=== PATIENT | male | born 1995 | race Two or more races ===

== ENCOUNTER 2019-06-30 17:06 | Inpatient (IN) | payer SELFPAY ==
[~2019-06-30] VITALS: Ht 157.5 cm; Wt 55.3 kg
[2019-06-30] MEDS ORDERED: NALOXONE PREFILLED SYRINGE 2 MG/2 ML SYRINGE ONE (17:37)
[2019-06-30 17:47] LABS: BASOPHILS # (AUTO) 0.1 /CMM (0.0-0.2); BASOPHILS % (AUTO) 0.3 % (0.0-2.0); EOSINOPHILS % (AUTO) 0.1 % (0.0-6.0); HEMATOCRIT 54 % (39-51); HEMOGLOBIN 18.8 g/dL (13.5-17.5); LYMPHOCYTES # (AUTO) 1.1 /CMM (0.8-4.8); LYMPHOCYTES % (AUTO) 5.5 % (20.0-44.0); MEAN CORPUSCULAR HGB CONC 35 g/dl (31.0-36.0); MEAN CORPUSCULAR VOLUME 89 fL (80-96); MONOCYTES # (AUTO) 0.4 /CMM (0.1-1.30); MONOCYTES % (AUTO) 2.1 % (2.0-12.0); NEUTROPHILS # (AUTO) 17.9 /CMM (1.8-8.9); PLATELET COUNT (AUTO) 291 /CMM (150-450); RED BLOOD CELL COUNT(AUTO) 6.02 MIL/uL (4.5-6.0); WHITE BLOOD COUNT (AUTO) 19.5 K/uL (4.3-11.0)
--- NOTE | 2019-06-30 17:49 | NUR ---
[id number] POSS OD UNKNOWN DRUG " POWDERED " RESIDUE FOUND ON ID PER EMS GIVEN 4MG OF NARCAN & 4 MG OF ZOFRAN IVP IN FIELD.BLOODY NOSE. [id number]. PT AAOX3, HYPOXIC 02 SAT 65% RA. PLACED ON HI KEELY NON REBREATHTER. PT SEEN & EVAL'D BY DR. CHARLES. PLACED ON WEBSPHERE PORTAL DEVELOPER, ST. WILL CONT TO MONITOR.
--- NOTE | 2019-06-30 17:49 | NUR ---
MEDICATED WITH 2MG OF NARCAN IVP. PT MONSERRAT WELL.
[2019-06-30] MEDS ORDERED: NALOXONE PREFILLED SYRINGE 2 MG/2 ML SYRINGE IV ONE (18:00)
[2019-06-30 18:04] LABS: ALANINE AMINOTRANSFERASE 40 U/L (12-78); ALBUMIN 3.6 g/dL (3.4-5.0); ALKALINE PHOSPHATASE 104 U/L (46-116); ASPARTATE AMINOTRANSFERASE 44 U/L (15-37); BILIRUBIN,DIRECT 0.1 mg/dL (0.0-0.2); BILIRUBIN,TOTAL 0.3 mg/dL (0.2-1.0); CALCIUM, SERUM 8.7 mg/dL (8.5-10.1); CARBON DIOXIDE 28 mmol/L (21-32); CHLORIDE 103 mmol/L (98-107); CREATININE 1.5 mg/dL (0.6-1.3); GLUCOSE 242 mg/dL (74-106); POTASSIUM 3.6 mmol/L (3.5-5.1); SODIUM SERUM 141 mmol/L (136-145); UREA NITROGEN, BLOOD 14 mg/dL (7-18)
[2019-06-30 18:06] LABS: ACETAMINOPHEN < 2 ug/ml (10-30); ALCOHOL, BLOOD < 3 mg/dL (0-0); SALICYLATE 1.8 mg/dL (2.8-20.0)
[2019-06-30] MEDS ORDERED: IV NS 0.9% 1,000 ML BAG IV ONE ×2 (18:30→19:00)
--- NOTE | 2019-06-30 18:35 | NUR ---
RT @ BS FOR ANYA.
[2019-06-30 18:41] LABS: ABG BASE EXCESS -5.7 mmol/L; ABG OXYGEN SATURATION 84.1 % (92.0-98.5); ABG PH 7.286 (7.350-7.450); AaDO2 472.2 mmHg; COHb 0.6 % (0.5-1.5); MetHb 0.4 % (0.0-1.5); O2Hb 83.3 % (94.0-97.0); SITE, ABG Right Brachial; VENT MODE, BG NON REBREATHER
--- NOTE | 2019-06-30 18:53 | NUR ---
RT Pt placed on BiPAP and immediately became agitated and removed mask. Pt would not place BiPAP back on despite being educated on the benefits. Dr. Valladares and RN notified and aware. Pt placed back on non-rebreather.
[2019-06-30 18:57] LABS: BAND % (MANUAL) 2 % (0.0-5.0); LYMPHOCYTES % (MANUAL) 5 % (16-48); MONOCYTES % (MANUAL) 1 % (0-11.0); NEUTROPHILS % (MANUAL) 91 (42-76); REACTIVE LYMPHOCYTES 1 % (0-0)
[2019-06-30] MEDS ORDERED: PIPERACILLIN /TAZOBACTAM 3.375 G in IV D5W 50 ML IV ONE (19:00)
[2019-06-30 19:09] LABS: APPEARANCE,URINE Clear (CLEAR); BILIRUBIN,URINE SMALL (NEGATIVE); BLOOD, URINE Trace-intact Ery/uL (NEGATIVE); COLOR,URINE Yellow (YELLOW); KETONES,URINE Trace (NEGATIVE); LEUKOCYTE ESTERASE ,URINE Negative (NEGATIVE); NITRITE, URINE Negative (NEGATIVE); PROTEIN,URINE 100 mg/dl (NEGATIVE); UGLUCOSE 250 MG/DL mg/dL (NEGATIVE); UROBILINOGEN,URINE 0.2 EU/dL (0.2)
--- NOTE | 2019-06-30 19:16 | NUR ---
PT REFUSED BIPAP, DR. CHARLES AWARE. O2 SAT 92% HI KEELY NON REBREATHER. PT ASLEEP, EASILY AWAKEN BY VERBAL STIMULI. DENIES CP, SOB, DIZZINESS, N/V, WEAKNESS @ THIS TIME. WILL CONT TO MONITOR.
[2019-06-30 19:18] LABS: BACTERIA,URINE Rare /HPF (None Seen); SQUAMOUS EPITHELIAL CELL,UR Few /HPF (None Seen); WBC,URINE 0-2 /HPF (0-3)
--- NOTE | 2019-06-30 19:49 | NUR ---
BED ASSIGNMENT [id number]
[2019-06-30] MEDS ORDERED: NALOXONE HCL 0.4 MG/ML AMPUL IV PRN (20:00)
[2019-06-30] MEDS ORDERED: MAG HYDROX/AL HYDROX/SIMETH 30 ML UDC PO PRN (20:00)
[2019-06-30] MEDS ORDERED: ONDANSETRON HCL/PF 4 MG/2 ML VIAL IVP PRN (20:00)
[2019-06-30] MEDS ORDERED: MAGNESIUM HYDROXIDE 30 ML UDC PO PRN (20:00)
[2019-06-30] MEDS ORDERED: ALBUTEROL FS 2.5 MG/3 ML VIAL.NEB NEB PRN (20:30)
--- NOTE | 2019-06-30 20:34 | NUR ---
REPORT GIVEN TO GINI ABDULLAHI FOR [facility].
--- NOTE | 2019-06-30 21:00 | NUR ---
RECEIVED PATIENT IN NO ACUTE DISTRESS IN BED. PATIENT IS ALERT AND ORIENTED TIMES 4 AND ABLE TO MAKE NEEDS KNOWN. PATIENT IS ON O2 VIA NON REBREATHER AT 15LPM AND TOLERATING WELL WITH O2 SAT AT 92%. PATIENT IS ON TELEMETRY SHOWING ST ON THE MONITOR. PATIENT HAS LEFT AC 18G THAT IS CLEAN DRY INTACT AND PATENT WITH SALINE FLUSH. BED IN LOW LOCK POSITION WITH RAILS UP TIMES 2. CALL LIGHT WITHIN REACH AND ALL SAFETY MEASURES ENSURED AND CARRIED OUT. WILL CONTINUE TO MONITOR PATIENT.
[2019-06-30 21:07] VITALS: BP 102/63
--- NOTE | 2019-06-30 21:20 | NUR ---
NOTIFIED DIMITIRY DNP AIRCRAFT ACCESSORIES MECHANIC AFTER SWALLOW EVAL WITH PATIENT ABLE TO DRINK WATER WITHOUT COUGHING OR DISCOMFORT. NOTIFIED BY DIMITIRY DNP THAT PATIENT IS ABLE TO SWALLOW WITHOUT DIFFICULTY THAT IT IS OK TO INCREASE DIET TOLERATED. READBACK ORDERS PERFORMED AND CARRIED OUT. WILL CONTINUE TO MONITOR PATIENT
[2019-06-30 21:30] VITALS: BP 95/70
[2019-06-30] MEDS: IV NS 0.9% 1,000 ML IV PRN (21:47)
[2019-06-30 22:00] VITALS: BP 105/66
[2019-06-30 23:01] VITALS: BP 102/79
[2019-06-30 23:30] VITALS: BP 98/63
[2019-07-01] VITALS (17 sets, daily range): BP systolic 88–131; BP diastolic 49–78
[2019-07-01] MEDS ORDERED: PIPERACILLIN /TAZOBACTAM 3.375 G in IV D5W 50 ML IV SCH ×2
[2019-07-01] MEDS: PIPERACILLIN /TAZOBACTAM 3.375 G in IV D5W 100 ML IV SCH ×3 (00:48→16:48)
[2019-07-01 04:08] LABS: BASOPHILS % (AUTO) 0.3 % (0.0-2.0); EOSINOPHILS % (AUTO) 0.1 % (0.0-6.0); HEMATOCRIT 47 % (39-51); HEMOGLOBIN 16.5 g/dL (13.5-17.5); LYMPHOCYTES # (AUTO) 0.9 /CMM (0.8-4.8); LYMPHOCYTES % (AUTO) 9.6 % (20.0-44.0); MEAN CORPUSCULAR HGB CONC 35 g/dl (31.0-36.0); MEAN CORPUSCULAR VOLUME 89 fL (80-96); MONOCYTES # (AUTO) 0.5 /CMM (0.1-1.30); MONOCYTES % (AUTO) 5.3 % (2.0-12.0); NEUTROPHILS # (AUTO) 7.6 /CMM (1.8-8.9); NEUTROPHILS % (AUTO) 84.7 % (43.0-81.0); PLATELET COUNT (AUTO) 208 /CMM (150-450); RED BLOOD CELL COUNT(AUTO) 5.26 MIL/uL (4.5-6.0); WHITE BLOOD COUNT (AUTO) 8.9 K/uL (4.3-11.0)
[2019-07-01 04:38] LABS: BILIRUBIN,TOTAL 0.6 mg/dL (0.2-1.0); CALCIUM, SERUM 8.3 mg/dL (8.5-10.1); CREATININE 1.2 mg/dL (0.6-1.3); MAGNESIUM 1.6 mg/dL (1.8-2.4); PHOSPHORUS 3.3 mg/dL (2.5-4.9); POTASSIUM 4.2 mmol/L (3.5-5.1); TOTAL PROTEIN, SERUM 5.7 g/dL (6.4-8.2)
[2019-07-01 04:41] LABS: THYROID STIMULATING HORMONE 0.438 uIU/mL (0.358-3.74)
--- NOTE | 2019-07-01 07:16 | NUR ---
PATIENT REMAINS IN NO ACUTE DISTRESS IN BED. PATIENT DID NOT HAVE ANY SIGNIFICANT CHANGE IN CONDITION DURING SHIFT. ALL NEEDS MET, ALL ORDERS CARRIED OUT. WILL ENDORSE CARE TO AM RN FOR CONTINUITY OF CARE.
[2019-07-01] MEDS: PANTOPRAZOLE 40 MG TABLET.DR PO SCH (07:51)
--- NOTE | 2019-07-01 07:58 | NUR ---
RN NOTES RECEIVED PATIENT FROM RN. PATIENT AWAKE, ALERT, RESPONDS TO VOICE, DENIES PAIN. SAFETY MAINTAINED, REORIENTED HIM TO SET UP.COACHED TO RELAX AND DEEP BREATH.CONTINUE MONITOR. CALL LIGHT WITHIN REACH.
--- NOTE | 2019-07-01 10:06 | NUR ---
RN NOTES 1000-PATIENT SEEN BY DR JONES, PATIENT DENIES PAINMD DISCUSSED PLANS OF CARE WITH HIM HE VERBALIZED UNDERSTANDING.
[2019-07-01] MEDS: Magnesium 1GM/D5W 100ML PREMIX 100 ML IV SCH ×2 (11:08→11:58)
--- NOTE | 2019-07-01 14:37 | NUR ---
PT DENIES ANY PAIN HAS A LITTLE BIT OF SOB WHICH IS TO BE EXPECTED WITH PNEUMONIA. PT HAS 2L O2 VIA NC ON. WILL CONTINUE TO MONITOR. HR 106.
--- NOTE | 2019-07-01 15:38 | NUR ---
PT REQUESTED TO HAVE IV REMOVED THAT WAS AN LEFT AC DUE TO THE PAIN IT WAS CAUSING HIM.
--- NOTE | 2019-07-01 19:05 | NUR ---
RN CLOSING NOTES PT IS IN BED RESTING WITH FAMILY AT BEDSIDE PT HAS A MIDLINE 18 GAUGE IN [place]. PT DENIES ANY PAIN. DOES SAY HE FEELS SOB. BREATHING TX GIVEN AT 1530, PT ON 4 L O2 VIA NC. PT IS A&OX4. PT IS ABLE TO AMBULATE TO RESTROOM. WILL ENDORSE CONTINUATION OF CARE TO ART DIRECTOR RN
--- NOTE | 2019-07-01 19:38 | NUR ---
AUTOMOBILE PARTS ASSEMBLER NOTE: RECEIVED PT ON BED ALERT AND ORIENTED X3. ABLE TO MAKE NEEDS KNOWN. FAMILY AT BEDSIDE. NO ACUTE DISTRESS NOTED. DENIES PAIN AND DISCOMFORT AT THIS TIME. ON 2LPM NASAL CANNULA, BREATHING EVEN AND UNLABORED WITH NORMAL RESPIRATIONS. ON TELE MONITOR SINUS RHYTHM HR 95BPM. RIGHT UPPER ARM MIDLINE INTACT AND PATENT, IVF INFUSING WELL. KEPT CLEAN, DRY AND COMFORTABLE. CALL LIGHT PLACED WITHIN REACH. SAFETY AND FALL PRECAUTIONS OBSERVED AND MAINTAINED. WILL CONTINUE TO MONITOR PT.
[2019-07-01] MEDS: ACETAMINOPHEN 325 MG TABLET PO PRN (20:32)
--- NOTE | 2019-07-01 22:30 | NUR ---
TECHNOLOGY MANAGER NOTE: PT NOTED TO HAVE WITHDRAWAL SYMPTOMS. STONE RIGGER PRESIDENT [employer] JASON NOTIFIED AND HE ORDERED ATIVAN 1MG IVP Q4H PRN AND 500ML NS BOLUS. ORDER CARRIED OUT AND DONE. WILL CONTINUE TO MONITOR PT.
[2019-07-01] MEDS: LORAZEPAM INJ 2 MG/ML VIAL IV PRN (22:33)
[2019-07-01] MEDS ORDERED: IV NS 0.9% 500 ML IV ONE (23:00)
[2019-07-02] VITALS: BP 113/76
[2019-07-02] MEDS: PIPERACILLIN /TAZOBACTAM 3.375 G in IV D5W 100 ML IV SCH ×4 (00:13→23:14)
[2019-07-02] MEDS: IV NS 0.9% 1,000 ML IV PRN ×3 (02:16→16:48)
[2019-07-02 04:00] VITALS: BP 105/71
[2019-07-02 06:27] LABS: BASOPHILS % (AUTO) 0.3 % (0.0-2.0); EOSINOPHILS % (AUTO) 0.8 % (0.0-6.0); HEMATOCRIT 42 % (39-51); HEMOGLOBIN 14.6 g/dL (13.5-17.5); LYMPHOCYTES # (AUTO) 1.6 /CMM (0.8-4.8); LYMPHOCYTES % (AUTO) 10.7 % (20.0-44.0); MEAN CORPUSCULAR HGB CONC 35 g/dl (31.0-36.0); MEAN CORPUSCULAR VOLUME 88 fL (80-96); MONOCYTES # (AUTO) 0.6 /CMM (0.1-1.30); MONOCYTES % (AUTO) 4.5 % (2.0-12.0); NEUTROPHILS # (AUTO) 12.2 /CMM (1.8-8.9); NEUTROPHILS % (AUTO) 83.7 % (43.0-81.0); PLATELET COUNT (AUTO) 190 /CMM (150-450); RED BLOOD CELL COUNT(AUTO) 4.74 MIL/uL (4.5-6.0); WHITE BLOOD COUNT (AUTO) 14.5 K/uL (4.3-11.0)
--- NOTE | 2019-07-02 06:47 | NUR ---
SUPERVISORY HISTORIAN NOTE: NO CHANGES NOTED THROUGHOUT THE SHIFT. NO APPARENT DISTRESS NOTED. NO COMPLAINTS OF PAIN OR DISCOMFORT AT THIS TIME. VITAL SIGNS STABLE. ON 4LPM NASAL CANNULA, SATURATING WELL. NO SOB NOTED. SINUS RHYTHM ON TELE MONITOR HR 87BPM. RIGHT UPPER ARM MIDLINE INTACT AND PATENT WITH IVF NS RUNNING AT 75ML/HR. KEPT CLEAN, DRY AND COMFORTABLE. CALL LIGHT PLACED WITHIN REACH. ENCOURAGED TO VERBALIZE NEEDS AND CONCERNS AND TO CALL FOR ASSISTANCE IF NEEDED. WILL ENDORSE TO DAY SHIFT RN FOR CONTINUITY OF CARE.
[2019-07-02 06:53] LABS: CREATININE 0.9 mg/dL (0.6-1.3); MAGNESIUM 1.9 mg/dL (1.8-2.4); POTASSIUM 3.5 mmol/L (3.5-5.1)
[2019-07-02 08:00] VITALS: BP_SYST 130; BP_SYST 133; BP_DIAS 68; BP_DIAS 72
[2019-07-02] MEDS: PANTOPRAZOLE 40 MG TABLET.DR PO SCH (08:10)
[2019-07-02] MEDS: LORAZEPAM INJ 2 MG/ML VIAL IV PRN ×3 (15:05→23:08)
[2019-07-02 16:00] VITALS: BP 123/78
[2019-07-02] MEDS: POTASSIUM CHLORIDE 20 MEQ TAB.PRT.SR PO SCH ×3 (16:47→18:49)
--- NOTE | 2019-07-02 19:30 | NUR ---
PREPRESS MANAGER NOTE: RECEIVED PT ON BED ASLEEP BUT AROUSES EASILY TO VERBAL AND TACTILE STIMULI. FAMILY AT BEDSIDE. NO ACUTE DISTRESS NOTED. DENIES PAIN AND DISCOMFORT AT THIS TIME. ON ROOM AIR, BREATHING EVEN AND UNLABORED WITH NORMAL RESPIRATIONS. ON TELE MONITOR SINUS RHYTHM HR 97BPM. RIGHT UPPER ARM MIDLINE INTACT AND PATENT, IVF INFUSING WELL. KEPT CLEAN, DRY AND COMFORTABLE. CALL LIGHT PLACED WITHIN REACH. SAFETY AND FALL PRECAUTIONS OBSERVED AND MAINTAINED. WILL CONTINUE TO MONITOR PT.
[2019-07-02 20:00] VITALS: BP 118/76
[2019-07-02] MEDS ORDERED: QUET100T PO (23:05)
--- NOTE | 2019-07-03 00:02 | NUR ---
DIRECTOR OUTCOMES NOTE: PATIENT REFUSED 12AM VITAL SIGNS. MOM AT BEDSIDE. CHARGE NURSE AWARE. WILL CONTINUE TO MONITOR PT.
[2019-07-03] MEDS: IV NS 0.9% 1,000 ML IV PRN (02:01)
[2019-07-03] MEDS: LORAZEPAM INJ 2 MG/ML VIAL IV PRN ×2 (03:11→06:55)
[2019-07-03 04:00] VITALS: BP 107/73
--- NOTE | 2019-07-03 06:37 | NUR ---
HIGH SCHOOL MUSIC INSTRUCTOR NOTE: NO CHANGES NOTED THROUGHOUT THE SHIFT. MOM AT BEDSIDE. NO APPARENT DISTRESS NOTED. NO COMPLAINTS OF PAIN OR DISCOMFORT AT THIS TIME. ON ROOM AIR, SATURATING WELL. NO SOB NOTED. SINUS TACHY ON TELE MONITOR HR 110BPM. RIGHT UPPER ARM MIDLINE INTACT AND PATENT WITH IVF NS RUNNING AT 125ML/HR. KEPT CLEAN, DRY AND COMFORTABLE. CALL LIGHT PLACED WITHIN REACH. ENCOURAGED TO VERBALIZE NEEDS AND CONCERNS AND TO CALL FOR ASSISTANCE IF NEEDED. WILL ENDORSE TO DAY SHIFT RN FOR CONTINUITY OF CARE.
[2019-07-03 06:58] LABS: BASOPHILS % (AUTO) 0.3 % (0.0-2.0); EOSINOPHILS % (AUTO) 1.2 % (0.0-6.0); HEMATOCRIT 42 % (39-51); HEMOGLOBIN 14.6 g/dL (13.5-17.5); LYMPHOCYTES # (AUTO) 1.9 /CMM (0.8-4.8); LYMPHOCYTES % (AUTO) 15.8 % (20.0-44.0); MEAN CORPUSCULAR HGB CONC 35 g/dl (31.0-36.0); MEAN CORPUSCULAR VOLUME 88 fL (80-96); MONOCYTES # (AUTO) 0.7 /CMM (0.1-1.30); MONOCYTES % (AUTO) 5.3 % (2.0-12.0); NEUTROPHILS # (AUTO) 9.4 /CMM (1.8-8.9); NEUTROPHILS % (AUTO) 77.4 % (43.0-81.0); PLATELET COUNT (AUTO) 207 /CMM (150-450); RED BLOOD CELL COUNT(AUTO) 4.73 MIL/uL (4.5-6.0); WHITE BLOOD COUNT (AUTO) 12.2 K/uL (4.3-11.0)
[2019-07-03 07:17] LABS: CALCIUM, SERUM 8.6 mg/dL (8.5-10.1); CREATININE 0.8 mg/dL (0.6-1.3)
--- NOTE | 2019-07-03 07:30 | NUR ---
RN NOTES RECEIVED PATIENT IN BED, ASLEEP BUT EASILY AWAKEN TO VERBAL STIMULI, NOT ON ANY FORM OF DISTRESS, NO INDICATION OF PAIN NOTED. ON ROOM AIR. SATING FINE. SINUS RHYTHM ON THE MONITOR WITH HR ON THE 90'S. IV ACCESS ON THE [place]IAM: MIDLINE, IN PLACE AND INTACT. NO SIGN OF INFECTION NOTED. DRESSING CDI. WITH ONGOING IVF OF NS AT 125CC/HR. MOTHER AT BEDSIDE. SAFETY MEASURES OBSERVED AND MAINTAINED. BED LOW AND LOCKED POSITION. CALL LIGHT PLACED WITHIN REACH. WILL CONTINUE TO MONITOR PATIENT AND ANTICIPATE NEEDS
[2019-07-03 08:00] VITALS: BP 103/65
[2019-07-03] MEDS: PIPERACILLIN /TAZOBACTAM 3.375 G in IV D5W 100 ML IV SCH ×2 (09:17→16:00)
[2019-07-03] MEDS: PANTOPRAZOLE 40 MG TABLET.DR PO SCH (09:17)
[2019-07-03] MEDS: ACETAMINOPHEN 325 MG TABLET PO PRN (09:57)
--- NOTE | 2019-07-03 10:00 | NUR ---
RN NOTES PATIENT COMPLAINED OF CHEST PAIN, SCALE OF 9/10 ON THE LEFT SIDE OF THE CHHEST. PER PATIENT HE IS HAVING SHORTNESS OF BREATHE DUE TO THE PAIN. PATIENT'S BREATHING APPEARED UNLABORED. SATING AT 95%. BLOOD PRESSURE AT 105/71MMHG HR AT 99. OFFERED PAIN MEDICINE PRN: TYLENOL AT 650MG PO WHICH THE PATIENT TOOK. RAUL COOLEY NP WHO ORDERED STAT EKG AND TROPONIN LEVEL. ORDER NOTED AND CARRIED OUT
[2019-07-03 12:00] VITALS: BP 105/71
[2019-07-03] MEDS ORDERED: AMOX-430 PO (13:21)
[2019-07-03] MEDS ORDERED: ASPI-605 PO (13:21)
[2019-07-03] MEDS ORDERED: BUSP5TAB3 PO (13:21)
[2019-07-03] MEDS ORDERED: ASPIRIN 325 MG TABLET PO SCH (13:30)
--- NOTE | 2019-07-03 13:30 | NUR ---
RN NOTES SEEN AND EXAMINNED BY WILMAR COOLEY WITH ORDERS FOR DISCHARGE. ALSO INFORMED LATER THAT MOTHER OF THE PATIENT WANTED TO TALK TO HER
[2019-07-03] MEDS: busPIRone 5 MG TABLET PO SCH ×2 (15:18→17:39)
--- NOTE | 2019-07-03 15:35 | NUR ---
RN NOTES PAGED YASIR AGAIN TO INFORMED HIM ABOUT MOTHER'S DESIRE TO TALK TO HIM. LATER ASKED FOR THE PHONE NUMBER, WHICH I GAVE.
[2019-07-03 16:00] VITALS: BP 105/71
--- NOTE | 2019-07-03 16:00 | NUR ---
RN NOTES PATIENT'S DUE ZOSYN NOT GIVEN TO PATIENT HAD ASKED TO HAVE IV LINE REMOVED PRIOR TO THIS TIME
--- NOTE | 2019-07-03 17:00 | NUR ---
RN NOTES MOTHER AT THE BEDSIDE, DISCHARGE PAPERS GIVEN TO HER WITH REGARD WITH THE DISCHARGE. AT THIS TIME MOTHER REFUSED TO SIGN BELONGING LIST DUE TO CLAIMS THAT PATIENT DID HAVE HIS NIKE SHOES ON DURING ADMISSION WHICH NOW NOT AT THE BEDSIDE. CALLED ER AND ICU TO CHECK FOR BLACK SHOES BUT TO NO AVAIL. CALLED CASE MANAGEMENT FOR HELP.
--- NOTE | 2019-07-03 17:20 | NUR ---
RN NOTES SPOKE TO DINKEY LOCOMOTIVE ENGINEER, WHO THEN TALK TO MOTHER (RAKEL)
--- NOTE | 2019-07-03 18:00 | NUR ---
RN NOTES DISCHARGE AND MEDICATION INSTRUCTIONS GIVEN TO MOM AT BEDSIDE. PATIENT LISTENING, SITTING AT THE BED AT THIS TIME. REFUSED VACCINES WHEN OFFERED. SKIN IS NOTED INTACT. MENTIONED EARLIER MOTHER REFUSED TO SIGN BELONGING LIST. PER MOTHER, THEY WILL WAIT FOR THE RIDE HOME
--- NOTE | 2019-07-03 19:28 | NUR ---
RN NOTES ENDORSED FOR CONTINUITY OF CARE PENDING DISCHARGE,PATIENT WAITING FOR RIDE HOME. NOT ON ANY FORM OF DISTRESS. ALL NURSING NEEDS ATTENDED AND MET. ALL DISCHARGE PAPERS FACILITATED. SAFETY MEASURES IN PLACE. MOTHER AN D FRIENDS AT BEDSIDE
--- NOTE | 2019-07-03 20:10 | NUR ---
MS RN NOTE PT RIDE ARRIVED, ALL DISCHARGE INSTRUCTIONS GIVEN BY DAY SHIFT NURSE. NO DISTRESS OR DISCOMFORT NOTED. DENIES PAIN. PT LEFT THE ROOM ON W/C IN A STABLE CONDITION. PT DIDN'T SIGN THE BELONGING LIST DUE TO NIKE SHOES IS MISSING. CHARGE NURSE AURORA SARAVIA.
[2019-07-03] MEDS ORDERED: QUETIAPINE FUMARATE 100 MG TABLET PO SCH (22:00)
== END 2019-07-03 20:10 | disposition home or self-care (01) | DRG 917 ==
LOC: ER 17:09 → ICU 19:53 → TELE1 07-01 13:22 → MEDSG1 07-02 08:23 → TELE1 07-02 12:58 → MEDSG1 07-03 09:00
PROVIDERS: ADMIT Nurse Practitioner Acute Care; ATTEND Nurse Practitioner Acute Care
PROC: 05H533Z Insertion of Infusion Device into Right Subclavian Vein, Percutaneous Approach (ICD-10-PCS; principal; 2019-07-01)
DX: T40.7X1A Poisoning by cannabis (derivatives), accidental (unintentional), initial encounter (principal); J69.0 Pneumonitis due to inhalation of food and vomit; J96.01 Acute respiratory failure with hypoxia; G92 Toxic encephalopathy; J96.02 Acute respiratory failure with hypercapnia; I21.A1 Myocardial infarction type 2; N17.9 Acute kidney failure, unspecified; F19.20 Other psychoactive substance dependence, uncomplicated; Y92.89 Other specified places as the place of occurrence of the external cause; R73.9 Hyperglycemia, unspecified; D72.829 Elevated white blood cell count, unspecified; R07.81 Pleurodynia; T43.621A Poisoning by amphetamines, accidental (unintentional), initial encounter; T40.5X1A Poisoning by cocaine, accidental (unintentional), initial encounter; Y92.009 Unspecified place in unspecified non-institutional (private) residence as the place of occurrence of the external cause; F41.1 Generalized anxiety disorder
CPT/HCPCS: 36415; 36600; 71045-TC; 80048-TC; 80053-TC; 80061-TC; 80076-TC; 80305; 81000-TC; 82803-TC; 83735-TC; 84100-TC; 84443-TC; 84484-TC; 85025-TC; 87040-TC; 87081-TC; 93307-TC; 94799-TC; 97116-TC; 97530-TC; G0378; G0480; J2060; J2310; J2405; J2543; J3475; J7030; J7040; J7060